=== PATIENT | female | born 1965 | race Caucasian/White ===

== ENCOUNTER 2017-12-03 04:47 | Emergency (ER) | payer MEDICAID ==
[~2017-12-03] VITALS: Ht 162.6 cm; Wt 65.9 kg
[2017-12-03] MEDS ORDERED: LORazepam 1MG TABLET ONE (05:28)
[2017-12-03] MEDS ORDERED: LORazepam 1MG TABLET PO ONE (05:30)
[2017-12-03 06:46] VITALS: BP 108/70
== END 2017-12-03 06:49 | disposition home or self-care (01) ==
LOC: ED 06:43
DX: R06.00 Dyspnea, unspecified (principal); F17.210 Nicotine dependence, cigarettes, uncomplicated; J44.9 Chronic obstructive pulmonary disease, unspecified
CPT/HCPCS: 71045; 93005; 99284